=== PATIENT | male | born 1965 | race Caucasian/White ===

== ENCOUNTER 2020-06-14 20:44 | Emergency (ER) | payer OTHER ==
[~2020-06-14] VITALS: Ht 165.1 cm; Wt 67.6 kg
[2020-06-14 20:48] VITALS: Ht 165.1 cm; Wt 67.6 kg
[2020-06-14 22:43] VITALS: BP 124/88
== END 2020-06-14 22:43 | disposition home or self-care (01) ==
LOC: ED 20:44
DX: S61.215A Laceration without foreign body of left ring finger without damage to nail, initial encounter (principal); W23.0XXA Caught, crushed, jammed, or pinched between moving objects, initial encounter; Y93.89 Activity, other specified; Y92.89 Other specified places as the place of occurrence of the external cause; Y99.8 Other external cause status
CPT/HCPCS: J2001; Q0092